=== PATIENT | female | born 1995 | race Caucasian/White ===

== ENCOUNTER 2019-06-08 02:25 | Emergency (ER) | payer MEDICAID ==
[~2019-06-08] VITALS: Ht 172.7 cm; Wt 76.2 kg
[2019-06-08 02:55] VITALS: BP_SYST 126
[2019-06-08] MEDS ORDERED: cefTRIAXone 1 GM in LIDOCAINE 1%, 20 ML MDV 2.1 ML IM ONE (04:30)
[2019-06-08] MEDS ORDERED: ACETAMINOPHEN 500 MG TABLET PO ONE (04:30)
[2019-06-08 05:27] VITALS: BP_SYST 123
== END 2019-06-08 05:27 | disposition home or self-care (01) ==
LOC: SED 02:25
DX: L02.424 Furuncle of left upper limb (principal)
CPT/HCPCS: 96372; 99283; J0696; J2001